=== PATIENT | female | born 1955 | race Caucasian/White ===

== ENCOUNTER → 2023-11-16 16:24 | Outpatient (REF) | payer OTHER, MEDICARE, SELFPAY | LOC: PAVMRI 16:24 | PROVIDERS: ATTENDING PHYSICIAN Physician Assistant Medical | DX: M54.10 Radiculopathy, site unspecified (principal) | CPT/HCPCS: 72148 ==

== ENCOUNTER → 2023-12-26 10:17 | Outpatient (REF) | payer OTHER, SELFPAY | LOC: HWCARD 10:17 | PROVIDERS: ATTENDING PHYSICIAN Physical Medicine & Rehabilitation; FAMILY PHYSICIAN Physician Assistant Medical | DX: Z01.818 Encounter for other preprocedural examination (principal) | CPT/HCPCS: 93005 ==

== ENCOUNTER → 2024-08-03 10:31 | Outpatient (REF) | payer MEDICARE, OTHER, SELFPAY | LOC: WDC 10:31 | PROVIDERS: ATTENDING PHYSICIAN Obstetrics & Gynecology; FAMILY PHYSICIAN Physician Assistant Medical | DX: Z12.31 Encounter for screening mammogram for malignant neoplasm of breast (principal) | CPT/HCPCS: 77063; 77067 ==

== ENCOUNTER 2024-12-14 06:26 | Day surgery (SDC) | payer MEDICARE, OTHER, SELFPAY ==
[2024-12-14 11:58] LABS: Glucose - Point of Care 92 mg/dl (70-99)
== END 2024-12-14 13:59 | disposition home or self-care (01) ==
LOC: GI 06:26
PROVIDERS: ATTENDING PHYSICIAN Internal Medicine Gastroenterology
DX: Z12.11 Encounter for screening for malignant neoplasm of colon (principal); K57.30 Diverticulosis of large intestine without perforation or abscess without bleeding; K64.8 Other hemorrhoids; Z86.0101 Personal history of adenomatous and serrated colon polyps
CPT/HCPCS: G0105; 82962

== ENCOUNTER → 2024-12-31 10:39 | Outpatient (REF) | payer MEDICARE, OTHER, SELFPAY | LOC: HWRAD 10:39 | PROVIDERS: ATTENDING PHYSICIAN Internal Medicine Rheumatology; FAMILY PHYSICIAN Physician Assistant Medical | DX: Z13.820 Encounter for screening for osteoporosis (principal); M85.89 Other specified disorders of bone density and structure, multiple sites; M81.0 Age-related osteoporosis without current pathological fracture | CPT/HCPCS: 77080; 77081 ==

== ENCOUNTER → 2025-08-07 10:50 | Outpatient (REF) | payer MEDICARE, OTHER, SELFPAY | LOC: WDC 10:50 | PROVIDERS: ATTENDING PHYSICIAN Obstetrics & Gynecology; FAMILY PHYSICIAN Physician Assistant Medical | DX: Z12.31 Encounter for screening mammogram for malignant neoplasm of breast (principal) | CPT/HCPCS: 77063; 77067 ==